=== PATIENT | female | born 1990 | race Caucasian/White ===

== ENCOUNTER → 2025-03-30 | Outpatient (REF) | payer BC ==
[2025-05-01 09:53] LABS: HPV APTIMA NOT DETECTED (NOT DETECT)
== END ==
LOC: M PLALAB 14:02
PROVIDERS: ATTEND Obstetrics & Gynecology
DX: Z12.4 Encounter for screening for malignant neoplasm of cervix (principal); R87.610 Atypical squamous cells of undetermined significance on cytologic smear of cervix (ASC-US)

== ENCOUNTER → 2025-08-07 | Outpatient (REF) | payer BC ==
[2025-08-09 16:43] LABS: HPV APTIMA Not Detected (Not Detected)
== END ==
LOC: M PLALAB 10:27
PROVIDERS: ATTEND Obstetrics & Gynecology
DX: Z12.4 Encounter for screening for malignant neoplasm of cervix (principal); R87.610 Atypical squamous cells of undetermined significance on cytologic smear of cervix (ASC-US)
CPT/HCPCS: 87624; G0123

== ENCOUNTER → 2025-08-09 | Outpatient (CLI) | payer BC | LOC: M WHC 09:48 | PROVIDERS: ATTEND Obstetrics & Gynecology | DX: R63.5 Abnormal weight gain (principal); L68.0 Hirsutism ==

== ENCOUNTER → 2025-08-21 | Outpatient (CLI) | payer BC ==
[2025-08-21 16:50] LABS: FREE T4 1.08 NG/DL (0.89-1.76); LUTEINIZING HORMONE 14.4 mIU/ML; PROLACTIN 5.13 NG/ML
[2025-08-21 16:54] LABS: ESTIMATED AVERAGE GLUCOSE 108.0 MG/DL (60-110)
[2025-08-23 09:13] LABS: SEX HORMONE BINDING GLOBULIN 9 nmol/L (17-124)
[2025-08-23 09:58] LABS: DEHYDROEPIANDROSTERONE SULFATE 215 mcg/dL (19-237)
== END ==
LOC: M PLALAB 12:12
PROVIDERS: ATTEND Obstetrics & Gynecology
DX: R63.5 Abnormal weight gain (principal)